=== PATIENT | female | born 1960 | race African-American/Black ===

== ENCOUNTER 2019-11-01 19:50 | Inpatient (IN) ==
[2019-11-02] MEDS ORDERED: LACTULOSE 20 GM/30 ML UDCUP PO PRN (01:25)
[2019-11-02] MEDS ORDERED: PROMETHAZINE 25 MG/1 ML VIAL IM PRN (01:25)
[2019-11-02] MEDS: KETOROLAC 10 MG TABLET PO PRN ×3 (02:38→21:55)
[2019-11-02 06:15] LABS: Basophils # 0.1 10*3/uL (0.0-0.2); Basophils % 0.7 % (0.0-0.8); Eosinophils # 0.1 10*3/uL (0.0-0.87); Eosinophils % 1.6 % (0.00-10.9); Hematocrit 34.7 VOL% (35.7-47.0); Hemoglobin 11.5 GM/DL (12.0-16.0); Immature Granulocytes % 0.4 %; Immature Granulocytes Absolute 0.03 #; Lymphocytes % 40.2 % (21.3-54.2); Mean Corpuscular HGB Conc 33.1 GM/DL (32-36); Mean Corpuscular Volume 80.7 FL (87-102); Mean Platelet Volume 11.3 FL (9.6-12.0); Monocytes % 7.3 % (1.7-12.7); Neutrophils % 49.8 % (38.7-73.9); Platelet Count 262 T/CUMM (130-400); Red Cell Distribution Width 13.5 % (9.3-17.3); White Blood Count 7.6 T/CUMM (4-12)
[2019-11-02 06:48] LABS: Albumin 3.2 G/DL (3.4-5.0); Bilirubin,Total 0.7 MG/DL (0.2-1.0); Calcium 8.8 MG/DL (8.5-10.1); Total Protein 6.6 G/DL (6.4-8.3)
[2019-11-02 07:02] LABS: Thyroid Stimulating Hormone 1.77 uIU/ml (0.358-3.74)
[2019-11-02] MEDS: LINACLOTIDE 145 MCG CAPSULE PO SCH (10:09)
[2019-11-02] MEDS: ESTRADIOL 2 MG TABLET PO SCH (10:10)
[2019-11-02] MEDS: PANTOPRAZOLE 40 MG TABLET PO SCH ×2 (10:10→21:56)
[2019-11-02] MEDS: GABAPENTIN 300 MG CAPSULE PO SCH ×3 (10:11→21:56)
[2019-11-02] MEDS: lisinopriL 10 MG TABLET PO SCH (10:11)
[2019-11-02] MEDS: SERTRALINE 100 MG TABLET PO SCH (10:11)
[2019-11-02] MEDS: ONDANSETRON 4 MG/2 ML VIAL IV PRN ×2 (12:08→22:04)
[2019-11-02] MEDS ORDERED: ALUM/MAG/SIMETH/LIDO VISC 1:1 30 ML BOTTLE PO ONE (14:39)
[2019-11-02 14:46] LABS: Apearance,Urine CLEAR (Clear); Bilirubin,Urine Negative (Negative); Blood, Urine Negative (Negative); Glucose,Urine (UA) Negative (Negative); Ketones,Urine Negative (Negative); Mucus,Urine Occasional /LPF (Occasional); Nitrite,Urine Negative (Negative); Protein,Urine Negative; RBC,Urine 2 /HPF (0-4); Squamous Epithelial Cell,Urine Occasional /HPF (0-10); Urine Color Yellow (Yellow); Urine Specific Gravity > 1.060 (1.001-1.035); Urine Urobilinogen < 2.0 EU/DL (0.2-1.0); WBC,Urine <1 /HPF (0-6)
[2019-11-02] MEDS: PROMETHAZINE INJ 12.5 MG in SODIUM CHLORIDE 0.9% 50 ML IV PRN (15:46)
[2019-11-02] MEDS: DONEPEZIL 10 MG TABLET PO SCH (21:56)
[2019-11-03 05:50] LABS: Basophils % 0.7 % (0.0-0.8); Eosinophils # 0.1 10*3/uL (0.0-0.87); Eosinophils % 1.5 % (0.00-10.9); Hemoglobin 11.7 GM/DL (12.0-16.0); Immature Granulocytes % 0.2 %; Immature Granulocytes Absolute 0.01 #; Lymphocytes # 2.6 10*3/uL (1.4-4.0); Lymphocytes % 42.6 % (21.3-54.2); Mean Corpuscular HGB Conc 34.4 GM/DL (32-36); Mean Corpuscular Volume 78.9 FL (87-102); Mean Platelet Volume 11.3 FL (9.6-12.0); Monocytes % 8.3 % (1.7-12.7); Neutrophils % 46.7 % (38.7-73.9); Platelet Count 260 T/CUMM (130-400); Red Blood Count 4.31 MC/CUMM (3.8-5.5); Red Cell Distribution Width 13.4 % (9.3-17.3)
[2019-11-03] MEDS: KETOROLAC 10 MG TABLET PO PRN (06:08)
[2019-11-03 06:21] LABS: Osmolality,Calculated 274.8 MOS/KG (273-304)
[2019-11-03] MEDS: PROMETHAZINE INJ 12.5 MG in SODIUM CHLORIDE 0.9% 50 ML IV PRN ×3 (06:42→23:09)
[2019-11-03] MEDS: LINACLOTIDE 145 MCG CAPSULE PO SCH (08:26)
[2019-11-03] MEDS: ESTRADIOL 2 MG TABLET PO SCH (08:26)
[2019-11-03] MEDS: PANTOPRAZOLE 40 MG TABLET PO SCH (08:27)
[2019-11-03] MEDS: lisinopriL 10 MG TABLET PO SCH (08:27)
[2019-11-03] MEDS: GABAPENTIN 300 MG CAPSULE PO SCH ×3 (08:27→21:27)
[2019-11-03] MEDS: SERTRALINE 100 MG TABLET PO SCH (08:28)
[2019-11-03] MEDS: PANTOPRAZOLE 40 MG VIAL IV SCH ×2 (15:25→21:27)
[2019-11-03] MEDS ORDERED: ALUM/MAG/SIMETH/LIDO VISC 1:1 30 ML BOTTLE PO ONE (16:14)
[2019-11-03] MEDS: DONEPEZIL 10 MG TABLET PO SCH (21:27)
[2019-11-04 06:50] LABS: Calcium 8.6 MG/DL (8.5-10.1); Osmolality,Calculated 274.7 MOS/KG (273-304)
[2019-11-04] MEDS: PANTOPRAZOLE 40 MG VIAL IV SCH ×2 (09:19→21:58)
[2019-11-04] MEDS: ESTRADIOL 2 MG TABLET PO SCH (09:21)
[2019-11-04] MEDS: LINACLOTIDE 145 MCG CAPSULE PO SCH ×2 (09:21→16:23)
[2019-11-04] MEDS: lisinopriL 10 MG TABLET PO SCH (09:21)
[2019-11-04] MEDS: GABAPENTIN 300 MG CAPSULE PO SCH ×3 (09:21→21:51)
[2019-11-04] MEDS: SERTRALINE 100 MG TABLET PO SCH (09:22)
[2019-11-04] MEDS: PROMETHAZINE INJ 12.5 MG in SODIUM CHLORIDE 0.9% 50 ML IV PRN ×2 (09:22→21:51)
[2019-11-04] MEDS ORDERED: ALUM/MAG/SIMETH/LIDO VISC 1:1 30 ML BOTTLE PO ONE (12:21)
[2019-11-04] MEDS: ACETAMINOPHEN 325 MG TABLET PO PRN (13:52)
[2019-11-04] MEDS: DONEPEZIL 10 MG TABLET PO SCH (21:51)
[2019-11-04] MEDS: KETOROLAC 10 MG TABLET PO PRN (21:51)
[2019-11-05] MEDS: PROMETHAZINE INJ 12.5 MG in SODIUM CHLORIDE 0.9% 50 ML IV PRN ×2 (03:43→10:52)
[2019-11-05] MEDS: KETOROLAC 10 MG TABLET PO PRN (03:44)
[2019-11-05] MEDS ORDERED: ALUM/MAG/SIMETH/LIDO VISC 1:1 30 ML BOTTLE PO ONE (04:13)
[2019-11-05] MEDS: PANTOPRAZOLE 40 MG VIAL IV SCH ×2 (08:10→21:53)
[2019-11-05] MEDS: LINACLOTIDE 145 MCG CAPSULE PO SCH (08:13)
[2019-11-05] MEDS: lisinopriL 10 MG TABLET PO SCH (08:13)
[2019-11-05] MEDS: GABAPENTIN 300 MG CAPSULE PO SCH ×3 (08:13→21:53)
[2019-11-05] MEDS: SERTRALINE 100 MG TABLET PO SCH (08:13)
[2019-11-05] MEDS: ESTRADIOL 2 MG TABLET PO SCH (08:13)
[2019-11-05] MEDS: POLYETHYLENE GLYCOL POWDER 17 GM PACK PO SCH (09:10)
[2019-11-05] MEDS: DOCUSATE SODIUM 100 MG CAPSULE PO SCH ×2 (09:10→21:53)
[2019-11-05] MEDS ORDERED: ALUM/MAG/SIMETH/LIDO VISC 1:1 30 ML BOTTLE PO SCH (10:37)
[2019-11-05] MEDS ORDERED: MAGNESIUM HYDROXIDE SUSP 30 ML UDCUP PO PRN (20:50)
[2019-11-05] MEDS: DONEPEZIL 10 MG TABLET PO SCH (21:53)
[2019-11-05] MEDS: ONDANSETRON 4 MG/2 ML VIAL IV PRN (21:59)
[2019-11-05] MEDS: ACETAMINOPHEN 325 MG TABLET PO PRN (22:00)
[2019-11-06] MEDS ORDERED: propofoL 200 MG/20 ML VIAL IV ONE (09:00)
[2019-11-06] MEDS ORDERED: LIDOCAINE 2% 5 ML VIAL ONE (09:00)
[2019-11-06] MEDS: lisinopriL 10 MG TABLET PO SCH (10:33)
[2019-11-06] MEDS: LACTATED RINGERS 1,000 ML IV SCH (10:33)
[2019-11-06] MEDS ORDERED: ONDANSETRON 4 MG/2 ML VIAL ONE (10:41)
[2019-11-06] MEDS: ONDANSETRON 4 MG/2 ML VIAL IV PRN ×2 (10:45→19:45)
[2019-11-06] MEDS: PANTOPRAZOLE 40 MG VIAL IV SCH ×2 (14:14→20:47)
[2019-11-06] MEDS: LINACLOTIDE 145 MCG CAPSULE PO SCH (14:15)
[2019-11-06] MEDS: POLYETHYLENE GLYCOL POWDER 17 GM PACK PO SCH (14:15)
[2019-11-06] MEDS: DOCUSATE SODIUM 100 MG CAPSULE PO SCH ×2 (14:16→20:48)
[2019-11-06] MEDS: SERTRALINE 100 MG TABLET PO SCH (14:16)
[2019-11-06] MEDS: ESTRADIOL 2 MG TABLET PO SCH (14:16)
[2019-11-06] MEDS: GABAPENTIN 300 MG CAPSULE PO SCH ×3 (14:16→20:48)
[2019-11-06] MEDS: ACETAMINOPHEN 325 MG TABLET PO PRN (17:55)
[2019-11-06] MEDS: guaiFENesin 200 MG/10 ML UDCUP PO PRN (18:31)
[2019-11-06] MEDS: DONEPEZIL 10 MG TABLET PO SCH (20:48)
[2019-11-07] MEDS: ACETAMINOPHEN 325 MG TABLET PO PRN (03:37)
[2019-11-07] MEDS: ONDANSETRON 4 MG/2 ML VIAL IV PRN ×2 (03:38→12:12)
[2019-11-07] MEDS ORDERED: DIPHENOXYLATE/ATROPINE 2.5-0.025 MG TABLET PO ONE (03:55)
[2019-11-07] MEDS: guaiFENesin 200 MG/10 ML UDCUP PO PRN (05:18)
[2019-11-07] MEDS: DICYCLOMINE 20 MG TABLET PO PRN ×3 (06:42→17:31)
[2019-11-07] MEDS: GABAPENTIN 300 MG CAPSULE PO SCH ×3 (09:08→20:01)
[2019-11-07] MEDS: SERTRALINE 100 MG TABLET PO SCH (09:08)
[2019-11-07] MEDS: lisinopriL 10 MG TABLET PO SCH (09:09)
[2019-11-07] MEDS: ESTRADIOL 2 MG TABLET PO SCH (09:10)
[2019-11-07] MEDS: LINACLOTIDE 145 MCG CAPSULE PO SCH (09:10)
[2019-11-07] MEDS: POLYETHYLENE GLYCOL POWDER 17 GM PACK PO SCH (09:10)
[2019-11-07] MEDS: PANTOPRAZOLE 40 MG VIAL IV SCH ×2 (09:10→20:00)
[2019-11-07] MEDS: DOCUSATE SODIUM 100 MG CAPSULE PO SCH ×2 (09:11→20:00)
[2019-11-07] MEDS: METOCLOPRAMIDE 5 MG TABLET PO SCH ×3 (12:08→20:00)
[2019-11-07] MEDS: LACTATED RINGERS 1,000 ML IV SCH ×2 (12:09→18:56)
[2019-11-07] MEDS: METOCLOPRAMIDE 10 MG/2 ML VIAL IV SCH ×2 (17:21→23:48)
[2019-11-07] MEDS: DONEPEZIL 10 MG TABLET PO SCH (20:00)
[2019-11-08] MEDS: METOCLOPRAMIDE 10 MG/2 ML VIAL IV SCH (05:12)
[2019-11-08] MEDS: ACETAMINOPHEN 325 MG TABLET PO PRN (08:55)
[2019-11-08] MEDS: PANTOPRAZOLE 40 MG TABLET PO SCH ×2 (08:55→20:37)
[2019-11-08] MEDS: ESTRADIOL 2 MG TABLET PO SCH (08:55)
[2019-11-08] MEDS: DOCUSATE SODIUM 100 MG CAPSULE PO SCH ×2 (08:56→20:37)
[2019-11-08] MEDS: GABAPENTIN 300 MG CAPSULE PO SCH ×3 (08:56→20:37)
[2019-11-08] MEDS: lisinopriL 10 MG TABLET PO SCH (08:56)
[2019-11-08] MEDS: SERTRALINE 100 MG TABLET PO SCH (08:56)
[2019-11-08] MEDS: METOCLOPRAMIDE 5 MG TABLET PO SCH ×4 (08:56→20:38)
[2019-11-08] MEDS: DICYCLOMINE 20 MG TABLET PO PRN (08:56)
[2019-11-08] MEDS: POLYETHYLENE GLYCOL POWDER 17 GM PACK PO SCH (08:57)
[2019-11-08] MEDS: LINACLOTIDE 145 MCG CAPSULE PO SCH (08:57)
[2019-11-08] MEDS: LACTATED RINGERS 1,000 ML IV SCH (11:52)
[2019-11-08] MEDS: DONEPEZIL 10 MG TABLET PO SCH (20:38)
[2019-11-09] MEDS: POLYETHYLENE GLYCOL POWDER 17 GM PACK PO SCH (08:27)
[2019-11-09] MEDS: lisinopriL 10 MG TABLET PO SCH (08:27)
[2019-11-09] MEDS: DOCUSATE SODIUM 100 MG CAPSULE PO SCH ×2 (08:27→20:45)
[2019-11-09] MEDS: METOCLOPRAMIDE 5 MG TABLET PO SCH ×4 (08:27→20:47)
[2019-11-09] MEDS: LINACLOTIDE 145 MCG CAPSULE PO SCH (08:27)
[2019-11-09] MEDS: GABAPENTIN 300 MG CAPSULE PO SCH ×3 (08:27→20:47)
[2019-11-09] MEDS: ESTRADIOL 2 MG TABLET PO SCH (08:27)
[2019-11-09] MEDS: SERTRALINE 100 MG TABLET PO SCH (08:27)
[2019-11-09] MEDS: PANTOPRAZOLE 40 MG TABLET PO SCH ×2 (08:27→20:47)
[2019-11-09 09:52] LABS: Basophils % 0.6 % (0.0-0.8); Eosinophils % 0.2 % (0.00-10.9); Hematocrit 35.7 VOL% (35.7-47.0); Hemoglobin 12.1 GM/DL (12.0-16.0); Immature Granulocytes % 0.2 %; Immature Granulocytes Absolute 0.01 #; Lymphocytes # 1.4 10*3/uL (1.4-4.0); Lymphocytes % 21.4 % (21.3-54.2); Mean Corpuscular HGB Conc 33.9 GM/DL (32-36); Mean Corpuscular Volume 79.5 FL (87-102); Mean Platelet Volume 11.2 FL (9.6-12.0); Neutrophils % 71.6 % (38.7-73.9); Platelet Count 270 T/CUMM (130-400); Red Blood Count 4.49 MC/CUMM (3.8-5.5); Red Cell Distribution Width 13.3 % (9.3-17.3); White Blood Count 6.5 T/CUMM (4-12)
[2019-11-09 10:36] LABS: Albumin 3.5 G/DL (3.4-5.0); Bilirubin,Total 0.8 MG/DL (0.2-1.0); Calcium 9.6 MG/DL (8.5-10.1); Osmolality,Calculated 272.7 MOS/KG (273-304); Total Protein 7.3 G/DL (6.4-8.3)
[2019-11-09] MEDS: LACTATED RINGERS 1,000 ML IV SCH (11:51)
[2019-11-09] MEDS ORDERED: ZALEPLON 5 MG CAPSULE PO ONE (20:37)
[2019-11-09] MEDS: DONEPEZIL 10 MG TABLET PO SCH (20:45)
[2019-11-09] MEDS: DICYCLOMINE 20 MG TABLET PO PRN (20:47)
[2019-11-10] MEDS: ALUM/MAG/SIMETH/LIDO VISC 1:1 30 ML BOTTLE PO PRN ×2 (00:39→10:01)
[2019-11-10] MEDS: ACETAMINOPHEN 325 MG TABLET PO PRN (04:19)
[2019-11-10] MEDS: DOCUSATE SODIUM 100 MG CAPSULE PO SCH ×2 (10:02→21:27)
[2019-11-10] MEDS: METOCLOPRAMIDE 5 MG TABLET PO SCH ×4 (10:02→21:27)
[2019-11-10] MEDS: SERTRALINE 100 MG TABLET PO SCH (10:02)
[2019-11-10] MEDS: ESTRADIOL 2 MG TABLET PO SCH (10:02)
[2019-11-10] MEDS: oxyCODONE IR 5 MG TABLET PO PRN ×3 (10:02→21:28)
[2019-11-10] MEDS: POLYETHYLENE GLYCOL POWDER 17 GM PACK PO SCH (10:03)
[2019-11-10] MEDS: GABAPENTIN 300 MG CAPSULE PO SCH ×3 (10:03→21:27)
[2019-11-10] MEDS: PANTOPRAZOLE 40 MG TABLET PO SCH ×2 (10:03→21:27)
[2019-11-10] MEDS: DICYCLOMINE 20 MG TABLET PO PRN ×3 (10:03→21:27)
[2019-11-10] MEDS: lisinopriL 10 MG TABLET PO SCH (10:03)
[2019-11-10] MEDS: LINACLOTIDE 145 MCG CAPSULE PO SCH (10:04)
[2019-11-10] MEDS ORDERED: traMADol 50 MG TABLET PO ONE (18:45)
[2019-11-10] MEDS ORDERED: ZALEPLON 5 MG CAPSULE PO PRN (18:47)
[2019-11-10] MEDS ORDERED: MELATONIN 3 MG TABLET PO ONE (21:00)
[2019-11-11] MEDS: DICYCLOMINE 20 MG TABLET PO PRN ×3 (02:21→20:46)
[2019-11-11] MEDS: ALUM/MAG/SIMETH/LIDO VISC 1:1 30 ML BOTTLE PO PRN ×3 (02:21→20:46)
[2019-11-11] MEDS: oxyCODONE IR 5 MG TABLET PO PRN ×2 (03:24→09:36)
[2019-11-11] MEDS ORDERED: traMADol 50 MG TABLET PO ONE (06:00)
[2019-11-11] MEDS ORDERED: KETOROLAC 30 MG/1 ML VIAL IM ONE (09:27)
[2019-11-11] MEDS: METOCLOPRAMIDE 5 MG TABLET PO SCH ×5 (09:32→20:47)
[2019-11-11] MEDS: ACETAMINOPHEN 325 MG TABLET PO PRN (09:33)
[2019-11-11] MEDS: PANTOPRAZOLE 40 MG TABLET PO SCH ×2 (09:33→20:40)
[2019-11-11] MEDS: lisinopriL 10 MG TABLET PO SCH (09:33)
[2019-11-11] MEDS: SERTRALINE 100 MG TABLET PO SCH (09:33)
[2019-11-11] MEDS: GABAPENTIN 300 MG CAPSULE PO SCH ×3 (09:33→20:40)
[2019-11-11] MEDS: DOCUSATE SODIUM 100 MG CAPSULE PO SCH ×2 (09:33→20:40)
[2019-11-11] MEDS: ESTRADIOL 2 MG TABLET PO SCH (09:34)
[2019-11-11] MEDS: POLYETHYLENE GLYCOL POWDER 17 GM PACK PO SCH (09:41)
[2019-11-11] MEDS: LINACLOTIDE 145 MCG CAPSULE PO SCH (09:41)
[2019-11-11] MEDS ORDERED: KETOROLAC 30 MG/1 ML VIAL ONE (22:37)
[2019-11-11] MEDS: traZODone 50 MG TABLET PO PRN (23:24)
[2019-11-12] MEDS: ALUM/MAG/SIMETH/LIDO VISC 1:1 30 ML BOTTLE PO PRN ×2 (05:49→22:02)
[2019-11-12] MEDS: ESTRADIOL 2 MG TABLET PO SCH (10:09)
[2019-11-12] MEDS: LINACLOTIDE 145 MCG CAPSULE PO SCH (10:09)
[2019-11-12] MEDS: lisinopriL 10 MG TABLET PO SCH (10:09)
[2019-11-12] MEDS: POLYETHYLENE GLYCOL POWDER 17 GM PACK PO SCH (10:09)
[2019-11-12] MEDS: DOCUSATE SODIUM 100 MG CAPSULE PO SCH ×2 (10:09→21:06)
[2019-11-12] MEDS: SERTRALINE 100 MG TABLET PO SCH (10:10)
[2019-11-12] MEDS: PANTOPRAZOLE 40 MG TABLET PO SCH ×2 (10:10→21:06)
[2019-11-12] MEDS: GABAPENTIN 300 MG CAPSULE PO SCH ×2 (10:10→22:03)
[2019-11-12] MEDS: METOCLOPRAMIDE 5 MG TABLET PO SCH ×4 (10:53→21:06)
[2019-11-12] MEDS: traMADol 50 MG TABLET PO PRN ×3 (13:12→23:28)
[2019-11-12] MEDS: traZODone 50 MG TABLET PO PRN (21:06)
[2019-11-12] MEDS: DICYCLOMINE 20 MG TABLET PO PRN (22:01)
[2019-11-13] MEDS: DICYCLOMINE 20 MG TABLET PO PRN (02:49)
[2019-11-13 05:28] LABS: Calcium 8.8 MG/DL (8.5-10.1); Osmolality,Calculated 267.1 MOS/KG (273-304)
[2019-11-13] MEDS: GABAPENTIN 300 MG CAPSULE PO SCH (08:40)
[2019-11-13] MEDS: LINACLOTIDE 145 MCG CAPSULE PO SCH (08:40)
[2019-11-13] MEDS: ESTRADIOL 2 MG TABLET PO SCH (08:40)
[2019-11-13] MEDS: PANTOPRAZOLE 40 MG TABLET PO SCH (08:40)
[2019-11-13] MEDS: SERTRALINE 100 MG TABLET PO SCH (08:40)
[2019-11-13] MEDS: DOCUSATE SODIUM 100 MG CAPSULE PO SCH (08:40)
[2019-11-13] MEDS: POLYETHYLENE GLYCOL POWDER 17 GM PACK PO SCH (08:40)
[2019-11-13] MEDS: METOCLOPRAMIDE 5 MG TABLET PO SCH ×2 (08:40→11:52)
[2019-11-13] MEDS: lisinopriL 10 MG TABLET PO SCH (08:40)
[2019-11-13 15:27] VITALS: BP 140/67
== END 2019-11-13 15:10 | disposition home or self-care (01) | DRG 392 ==
LOC: N.5E → SUATTDRO 11-03 08:37 → N.5E 11-10 09:21
PROVIDERS: ADMIT Internal Medicine; ATTEND Internal Medicine